=== PATIENT | female | born 1950 | race Caucasian/White ===

== ENCOUNTER 2020-08-09 16:29 | Outpatient (REF) | payer MEDICARE, SELFPAY ==
[2020-08-09 14:09] LABS: Abs Immature Grans 0.01 10^3/uL (0.0-0.06); Absolute Basophil Count 0.03 10^3/uL (0.0-0.2); Absolute Eosinophil Count 0.21 10^3/uL (0.0-0.7); Absolute Monocyte Count 0.37 10^3/uL (0.1-0.8); Absolute Neutrophil Count 2.53 10^3/uL (1.2-6.7); Basophils % 0.7; Eosinophils % 4.9; HCT 38.3 % (36.0-46.0); HGB 11.8 g/dL (11.2-15.7); Immature Grans % 0.2; Lymphocytes % 25.9; MCH 29.1 pg (27.0-33.0); MCHC 30.8 % (32.0-36.0); MCV 94.6 fL (80-95); MPV 11.5 fL (8.0-11.0); Monocytes % 8.7; Neutrophils % 59.6; Nucleated RBC 0 %; Platelet Count 219 10^3/uL (130-400); RBC 4.05 10^6/uL (3.93-5.22); RDW 13.2 % (11.7-14.6); RDW-SD 46.5 fL; WBC 4.25 10^3/uL (4.4-10.8)
[2020-08-09 14:16] LABS: ALT 31 U/L (14-59); AST 44 U/L (15-37); Albumin 4.2 g/dL (3.4-5.0); Alkaline Phosphatase 108 U/L (46-116); Anion Gap 10.3 mmol/L (3-11); BUN 21 mg/dL (7-18); Bilirubin, Total 0.2 mg/dL (0.2-1.0); CO2 26.7 mmol/L (21.0-32.0); Calcium 9.4 mg/dL (8.5-10.1); Calculated LDL 61 mg/dL (<100); Chloride 109 mmol/L (98-107); Cholesterol 152 mg/dL (<200); Estimated GFR 54.66 (mL/min/1.73m2); Glucose 78 mg/dL (74-106); HDL Cholesterol 81 mg/dL (40-60); Potassium 3.9 mmol/L (3.5-5.1); Sodium 146 mmol/L (136-145); Total Protein 6.9 g/dL (6.4-8.2); Triglyceride 50 mg/dL (<150)
== END 2020-08-09 16:30 | disposition home or self-care (01) ==
LOC: NCHCN 16:29
PROVIDERS: PCP Internal Medicine; Visit Provider Internal Medicine
DX: E78.5 Hyperlipidemia, unspecified (principal); Z87.19 Personal history of other diseases of the digestive system
CPT/HCPCS: 80053; 80061; 85025

== ENCOUNTER 2021-08-13 08:35 | Outpatient (REF) | payer MEDICARE, SELFPAY ==
[2021-08-13 16:02] LABS: ALT 29 U/L (14-59); AST 32 U/L (15-37); Albumin 3.8 g/dL (3.4-5.0); Alkaline Phosphatase 127 U/L (46-116); Anion Gap 6.9 mmol/L (3-11); BUN 17 mg/dL (7-18); Bilirubin, Total 0.3 mg/dL (0.2-1.0); CO2 27.1 mmol/L (21.0-32.0); CREATININE 0.7 mg/dL (0.55-1.02); Calcium 8.9 mg/dL (8.5-10.1); Chloride 109 mmol/L (98-107); Glucose 70 mg/dL (74-106); Potassium 3.4 mmol/L (3.5-5.1); Sodium 143 mmol/L (136-145); Total Protein 6.6 g/dL (6.4-8.2)
== END 2021-08-13 08:36 | disposition home or self-care (01) ==
LOC: NCHCN 08:35
PROVIDERS: PCP Internal Medicine; Visit Provider Internal Medicine
DX: R94.5 Abnormal results of liver function studies (principal); Z00.00 Encounter for general adult medical examination without abnormal findings
CPT/HCPCS: 80053

== ENCOUNTER 2022-11-29 18:34 | Outpatient (REF) | payer MEDICARE, MEDICAID, SELFPAY ==
[2022-11-29 21:41] LABS: ALT 104 U/L (14-59); AST 113 U/L (15-37); Albumin 4.3 g/dL (3.4-5.0); Alkaline Phosphatase 167 U/L (46-116); BUN 22 mg/dL (7-18); Bilirubin, Total 0.5 mg/dL (0.2-1.0); CREATININE 1.1 mg/dL (0.55-1.02); Calcium 9.2 mg/dL (8.5-10.1); Calculated LDL 75 mg/dL (<100); Chloride 103 mmol/L (98-107); Cholesterol 146 mg/dL (<200); Estimated GFR 53.06 (mL/min/1.73m2); Glucose 87 mg/dL (74-106); HDL Cholesterol 55 mg/dL (40-60); Potassium 4.4 mmol/L (3.5-5.1); Sodium 139 mmol/L (136-145); Total Protein 7.7 g/dL (6.4-8.2); Triglyceride 83 mg/dL (<150)
[2022-11-29 22:02] LABS: Vitamin D 25 Total 57.5 ng/mL (30-100)
== END 2022-11-29 18:35 | disposition home or self-care (01) ==
LOC: NCHCN 18:34
PROVIDERS: PCP Internal Medicine; Visit Provider Registered Nurse
DX: E78.5 Hyperlipidemia, unspecified (principal); E55.9 Vitamin D deficiency, unspecified; R94.5 Abnormal results of liver function studies; K76.89 Other specified diseases of liver
CPT/HCPCS: 80053; 80061; 82306

== ENCOUNTER 2023-05-16 12:19 | Outpatient (REF) | payer MEDICARE, SELFPAY ==
--- OUTSIDE RECORDS SUMMARY | 2023-05-16 12:21 | XMS_ITS | CCD ---
Author Name Unknown Address [address] [place] [address] [id number] Organization Unknown Address [address] [place], [place] [id number] Care Team Providers Care Plumbing And Heating Mechanic Name Role Phone KIMMIE PEREZ Attending Physician [phone] Vital Signs Unknown or Not Available. Allergies Allergy Code Allergy Type Reaction Status TOPAMAX 883617 Drug allergy UNKNOWN IN PCP PAPERWOR K Active ARICEPT 432046 Drug allergy Active TEGRETOL 327006 Drug allergy UNKNOWN PCP PAPERWORK A ctive CT DYE {Clinical monitoring unavailable} 0 Drug allergy Active Procedures Unknown or Not Available. History of Immunizations Unknown or Not Available. Problems Unknown or Not Available. Results Unknown or Not Available. Active Medications Unknown or Not Available. Medications Administered During Visit Unknown or Not Available. Encounters Encounter Diagnosis Diagnosis Code Start Date Unspecified fracture of shaf t of right ulna, subsequent encounter for closed fracture with routine healing [id number] Social History Unknown or Not Available. Patient Decision Aids Unknown or Not Available. Discharge Instructions You were admitted to [facility] on 07/18/2022 10:51 with a principal diagnosis of Unsp fx shaft of right ulna, subs for clos fx w routn heal You were discharged from [facility] on 07/18/2022 14:22 Should you have any questions prior to discharge, please contact a member of your healthcare team. If you have left the hospital and have any questions, please contact your primary care physician. Chief Complaint and Reason For Visit Unknown or Not Available. Function Status Unknown or Not Available. Plan of Care Unknown or Not Available. Referral/Transition of Care Unknown or Not Available.
--- OUTSIDE RECORDS SUMMARY | 2023-05-16 12:21 | XMS_ITS | CCD ---
Author Name Unknown Address [address] [place] [address] [id number] Organization Unknown Address [address] [place] [address] [id number] Care Team Providers Care Dinner Cook Name Role Phone KIMMIE PEREZ Attending Physician [phone] KIMMIE PEREZ Rounding (Secondary) Physic rayne [phone] Vital Signs Vital Sign Value Unit Date/Time Recent/Initial ? BP Systolic 126 mmHg 07/11/2022 20:18 Initial VS BP Diastolic 78 mmHg 07/11/2022 20:18 Initia l VS Respiratory Rate 15 bpm 07/11/2022 20:18 In itial VS Heart Rate 88 bpm 07/11/2022 20:18 Initial VS O2 % BldC Oximetry 95 % 07/11/2022 20:18 Initial VS Body Temperature 36.3 degrees 07/11/2022 20:18 In itial VS BMI (Body Mass Index) 32.87 kg/m^2 07/11/2022 20: 20 Initial VS Weight Measured 179.7 lbs 07/11/2022 20:20 Ini tial VS Height 62 in 07/11/2022 20:20 Initial VS BSA (Body Surface Area) 1.89 m^2 07/11/2022 2 0:20 Initial VS BP Systolic 142 mmHg 07/12/2022 11:29 Most Re cent VS BP Diastolic 67 mmHg 07/12/2022 11:29 Most R ecent VS Respiratory Rate 18 bpm 07/12/2022 11:[address] Recent VS Heart Rate 90 bpm 07/12/2022 11:29 Most Rec ent VS O2 % BldC Oximetry 18 % 07/12/2022 11:29 Most Recent VS Body Temperature 36.8 degrees 07/12/2022 11:[address] Recent VS Allergies Allergy Code Allergy Type Reaction Status TOPAMAX 571192 Drug allergy UNKNOWN IN PCP PAPERWOR K Active ARICEPT 663798 Drug allergy Active TEGRETOL 20290530 Drug allergy UNKNOWN PCP PAPERWORK A ctive CT DYE {Clinical monitoring unavailable} 0 Drug allergy Active Procedures Procedure Code Procedure Type Date Open Treatment, Ulnar FX,Pro ximal End (Olecranon Process), w/wo Int Fixation 85954 CPT 07/11/2022 Open Treatment, Patellar FX, w/Int Fixation/Patellectomy & Soft Tissue Repair 49987 CPT 07/11/2022 Injection Anesthetic Agent a nd/or Steroid; Femoral Nerve Including Imaging Guidance When Performed 53321 CPT 07/11/2022 Anesthesia, Open/Surg Arthroscopic Proc, Elbow; NOS 01 740 CPT 07/11/2022 History of Immunizations Unknown or Not Available. Problems Unknown or Not Available. Results Unknown or Not Available. Active Medications Medications Administered During Visit Medication Dose Units Frequency Route Date/Time of Last Dose CeFAZolin IVPB FROZEN PREMIX: 2GM/100ML 2 GM X1 07/11/2022 14:45 ACETAMINOPHEN TABLET: 325MG 975 MG X1 PO 07/11/2022 13:45 CELECOXIB CAPSULE: 100MG 200 MG X1 PO 07/11/2022 13:45 LACTATED RINGERS 1000ML 1 EA X1 07/11/2022 14:26 HYDROmorphone INJ SYRINGE: 0.5MG/0.5ML 0.25 MG PRN IN PACU Q5MIN IVP 07/11/2022 19:49 ACETAMINOPHEN INJ IVPB: 1000MG/100ML 1000 MG PRN IN PACU X1 07/11/2022 19 :04 ACETAMINOPHEN INJ IVPB: 1000MG/100ML 1000 MG Q6H 07/12/2022 09:3 3 ASCORBIC ACID TABLET: 500MG 500 MG DAILY PO 07/12/2022 09:33 CeFAZolin IVPB FROZEN PREMIX: 2GM/100ML 2 GM Q8H 07/12/2022 06:05 ASPIRIN TABLET E.C.: 81MG 81 MG BID PO 07/12/2022 09:33 DEXTROSE 5% AND NACL 0.45% 1000ML 1000 ML CONT 07/11/2022 21:4 0 Encounters Encounter Diagnosis Diagnosis Code Start Date Other fracture of left guzman la, initial encounter for closed fracture [id number] 07/11/2022 Social History Smoking Status Code Start Date End Date Never smoker [id number] Patient Decision Aids Patient Decision Aid Non Weight Bearing Activity Patient Portal Access Discharge Instructions You were admitted to [facility] on 07/11/2022 12:22 with a principal diagnosis of Other fracture of left patella, initial encounter for closed fracture You had the following procedures done:Open Treatment, Ulnar FX,Proximal End (Olecranon Process), w/wo Int FixationOpen Treatment, Patellar FX,w/Int Fixation/Patellectomy & Soft Tissue RepairInjection Anesthetic Agent and/or Steroid; Femoral Nerve Including Imaging Guidance When PerformedAnesthesia, Open/Surg Arthroscopic Proc, Elbow; NOS You were discharged from [facility] on 07/12/2022 12:50 Should you have any questions prior to discharge, please contact a member of your healthcare team. If you have left the hospital and have any questions, please contact your primary care physician. Chief Complaint and Reason For Visit Chief Complaint Date of Onset RT OLECRANON FRACTURE LT PATELLA FRACTUR E Function Status Unknown or Not Available. Plan of Care Unknown or Not Available. Referral/Transition of Care Unknown or Not Available.
--- OUTSIDE RECORDS SUMMARY | 2023-05-16 12:21 | XMS_ITS | CCD ---
Author Name Unknown Address [address] [place] [address] [id number] Organization Unknown Address [address] [place], [place] [phone] Care Team Providers Care Research Geologist Name Role Phone MARJAN DAS Attending Physician [phone] MARJAN DAS Rounding (Secondary) Physic rayne [phone] Vital Signs Unknown or Not Available. Allergies Allergy Code Allergy Type Reaction Status TOPAMAX 835464 Drug allergy UNKNOWN IN PCP PAPERWOR K Active ARICEPT 744320 Drug allergy Active TEGRETOL 047024 Drug allergy UNKNOWN PCP PAPERWORK A ctive CT DYE {Clinical monitoring unavailable} 0 Drug allergy Active Procedures Unknown or Not Available. History of Immunizations Unknown or Not Available. Problems Unknown or Not Available. Results Unknown or Not Available. Active Medications Unknown or Not Available. Medications Administered During Visit Unknown or Not Available. Encounters Encounter Diagnosis Diagnosis Code Start Date Closed fracture of patella [id number] 08/06 Social History Smoking Status Code Start Date End Date Never smoker [id number] Patient Decision Aids Unknown or Not Available. Discharge Instructions You were admitted to [facility] on 08/06/2022 00:00 with a principal diagnosis of Other fracture of left patella, subsequent encounter for closed fracture with routine healing You were discharged from [facility] on 08/06/2022 00:00 Should you have any questions prior to [...]
--- OUTSIDE RECORDS SUMMARY | 2023-05-16 12:21 | XMS_ITS | CCD ---
Author Name Unknown Address [address] [place] [address] [id number] Organization Unknown Address [address] [place] [address] [phone] Care Team Providers Care Regional Account Director Name Role Phone REGINALDO ELLIS Attending Physician [phone] REGINALDO ELLIS Rounding (Secondary) Physician [phone] Vital Signs Unknown or Not Available. Allergies Allergy Code Allergy Type Reaction Status TOPAMAX 091220 Drug allergy UNKNOWN IN PCP PAPERWOR K Active ARICEPT 828269 Drug allergy Active TEGRETOL 059144 Drug allergy UNKNOWN PCP PAPERWORK A ctive CT DYE {Clinical monitoring unavailable} 0 Drug allergy Active Procedures Unknown or Not Available. History of Immunizations Unknown or Not Available. Problems Unknown or Not Available. Results Unknown or Not Available. Active Medications Unknown or Not Available. Medications Administered During Visit Unknown or Not Available. Encounters Encounter Diagnosis Diagnosis Code Start Date Closed fracture of patella [id number] 08/13 Social History Smoking Status Code Start Date End Date Never smoker [id number] Patient Decision Aids Unknown or Not Available. Discharge Instructions You were admitted to [facility] on 08/13/2022 00:00 with a principal diagnosis of Other fracture of left patella, subsequent encounter for closed fracture with routine healing You were discharged from [facility] on 08/13/2022 00:00 Should you have any questions prior [...]
--- OUTSIDE RECORDS SUMMARY | 2023-05-16 12:21 | XMS_ITS | CCD ---
Author Name Unknown Address [address] [place] [address] [id number] Organization Unknown Address [address] [place] [address] [id number] Care Team Providers Care Complex Manager Name Role Phone CROW ANDRADE Attending Physician [phone] CROW ANDRADE Rounding (Secondary) Physici an [phone] Vital Signs Unknown or Not Available. Allergies Allergy Code Allergy Type Reaction Status TOPAMAX 792508 Drug allergy UNKNOWN IN PCP PAPERWOR K Active ARICEPT 729396 Drug allergy Active TEGRETOL 892134 Drug allergy UNKNOWN PCP PAPERWORK A ctive CT DYE {Clinical monitoring unavailable} 0 Drug allergy Active Procedures Unknown or Not Available. History of Immunizations Unknown or Not Available. Problems Unknown or Not Available. Results Unknown or Not Available. Active Medications Unknown or Not Available. Medications Administered During Visit Unknown or Not Available. Encounters Encounter Diagnosis Diagnosis Code Start Date Closed fracture of patella [id number] 07/23 Social History Smoking Status Code Start Date End Date Never smoker [id number] Patient Decision Aids Unknown or Not Available. Discharge Instructions You were admitted to [facility] on 07/23/2022 00:00 with a principal diagnosis of Other fracture of left patella, subsequent encounter for closed fracture with routine healing You were discharged from [facility] on 07/23/2022 00:00 Should you have any questions prior [...]
--- OUTSIDE RECORDS SUMMARY | 2023-05-16 12:21 | XMS_ITS | CCD ---
Author Name Unknown Address [address] [place] [address] [id number] Organization Unknown Address [address] [place], [place] [phone] Care Team Providers Care Motor Vehicle Assembly Supervisor Name Role Phone KIMMIE PEREZ Attending Physician [phone] Vital Signs Unknown or Not Available. Allergies Allergy Code Allergy Type Reaction Status TOPAMAX 917411 Drug allergy UNKNOWN IN PCP PAPERWOR K Active ARICEPT 450978 Drug allergy Active TEGRETOL 505819 Drug allergy UNKNOWN PCP PAPERWORK A ctive CT DYE {Clinical monitoring unavailable} 0 Drug allergy Active Procedures Unknown or Not Available. History of Immunizations Unknown or Not Available. Problems Unknown or Not Available. Results Unknown or Not Available. Active Medications Unknown or Not Available. Medications Administered During Visit Unknown or Not Available. Encounters Encounter Diagnosis Diagnosis Code Start Date Unspecified fracture of left patella, subsequent encounter for closed fracture with routine healing [id number] 07/23/2022 Social History Smoking Status Code Start Date End Date Never smoker [id number] Patient Decision Aids Unknown or Not Available. Discharge Instructions You were admitted to [facility] on 07/23/2022 10:27 with a principal diagnosis of Unspecified fracture of left patella, subsequent encounter for closed fracture with routine healing You were discharged from [facility] on 07/30/2022 14:02 Should you have any questions prior to [...]
--- OUTSIDE RECORDS SUMMARY | 2023-05-16 12:21 | XMS_ITS | CCD ---
Author Name Unknown Address [address] [place] [address] [id number] Organization Unknown Address [address] [place], [place] [phone] Care Team Providers Care Quality Assurance Lab Technician Name Role Phone KIMMIE PEREZ Attending Physician [phone] KIMMIE PEREZ Rounding (Secondary) Physic rayne [phone] Vital Signs Unknown or Not Available. Allergies Allergy Code Allergy Type Reaction Status TOPAMAX 737869 Drug allergy UNKNOWN IN PCP PAPERWOR K Active ARICEPT 623881 Drug allergy Active TEGRETOL 230246 Drug allergy UNKNOWN PCP PAPERWORK A ctive CT DYE {Clinical monitoring unavailable} 0 Drug allergy Active Procedures Unknown or Not Available. History of Immunizations Unknown or Not Available. Problems Unknown or Not Available. Results Unknown or Not Available. Active Medications Unknown or Not Available. Medications Administered During Visit Unknown or Not Available. Encounters Encounter Diagnosis Diagnosis Code Start Date Closed fracture of patella [id number] 08/26 Social History Smoking Status Code Start Date End Date Never smoker [id number] Patient Decision Aids Unknown or Not Available. Discharge Instructions You were admitted to [facility] on 08/26/2022 00:00 with a principal diagnosis of Other fracture of left patella, subsequent encounter for closed fracture with routine healing You were discharged from [facility] on 08/26/2022 00:00 Should you have any questions prior [...]
--- OUTSIDE RECORDS SUMMARY | 2023-05-16 12:22 | XMS_ITS | CCD ---
Author Name Unknown Address [address] [place] [address] [id number] Organization Unknown Address [address] [place], [place] [phone] Care Team Providers Care Conference Assistant Name Role Phone ANA CHONG Attending Physician [phone] CHELLE GUILLERMO Er Physician [phone] JENNIE Johnson Registered Nurse [phone] Vital Signs Vital Sign Value Unit Date/Time Recent/Initial ? BMI (Body Mass Index) 27.44 kg/m^2 07/06/2022 12: 59 Initial VS Weight Measured 150 lbs 07/06/2022 12:59 Ini tial VS Height 62 in 07/06/2022 12:59 Initial VS BSA (Body Surface Area) 1.73 m^2 07/06/2022 1 2:59 Initial VS BP Systolic 130 mmHg 07/06/2022 12:59 Initial VS BP Diastolic 65 mmHg 07/06/2022 12:59 Initia l VS Respiratory Rate 16 bpm 07/06/2022 12:59 In itial VS Heart Rate 72 bpm 07/06/2022 12:59 Initial VS O2 % BldC Oximetry 97 % 07/06/2022 12:59 Initial VS Body Temperature 35.7 degrees 07/06/2022 12:59 In itial VS BP Systolic 123 mmHg 07/06/2022 15:35 Most Re cent VS BP Diastolic 73 mmHg 07/06/2022 15:35 Most R ecent VS Respiratory Rate 16 bpm 07/06/2022 15:[address] Recent VS Heart Rate 86 bpm 07/06/2022 15:35 Most Rec ent VS O2 % BldC Oximetry 93 % 07/06/2022 15:35 Most Recent VS Allergies Allergy Code Allergy Type Reaction Status CT DYE {Clinical monitoring unavailable} 0 Drug a llergy Active Procedures Unknown or Not Available. History of Immunizations Unknown or Not Available. Problems Unknown or Not Available. Results Unknown or Not Available. Active Medications Unknown or Not Available. Medications Administered During Visit Unknown or Not Available. Encounters Encounter Diagnosis Diagnosis Code Start Date Unspecified fracture of uppe r end of right ulna, initial encounter for closed fracture [id number] 07/06/2022 Social History Unknown or Not Available. Patient Decision Aids Unknown or Not Available. Discharge Instructions You were admitted to [facility] on 07/06/2022 12:37 with a principal diagnosis of Unspecified fracture of upper end of right ulna, initial encounter for closed fracture You were discharged from [facility] on 07/06/2022 16:05 Should you have any questions prior to discharge, please contact a member of your healthcare team. If you have left the hospital and have any questions, please contact your primary care physician. Chief Complaint and Reason For Visit Chief Complaint Date of Onset FALL Function Status Unknown or Not Available. Plan of Care Unknown or Not Available. Referral/Transition of Care Unknown or Not Available.
--- OUTSIDE RECORDS SUMMARY | 2023-05-16 12:22 | XMS_ITS | CCD ---
Author Name Unknown Address [address] [place] [address] [id number] Organization Unknown Address [address] [place] [address] [phone] Care Team Providers Care Desktop Support Technician Name Role Phone KIMMIE PEREZ Attending Physician [phone] Vital Signs Unknown or Not Available. Allergies [...] guzman la, initial encounter for closed fracture [id number] 07/10/2022 Social History Unknown or Not Available. Patient Decision Aids Unknown or Not Available. Discharge Instructions You were admitted to [facility] on 07/10/2022 13:14 with a principal diagnosis of Other fracture of left patella, initial encounter for closed fracture You were discharged from [facility] on 07/10/2022 13:14 Should you have any questions prior to discharge, please contact a member of your healthcare team. If you have left the hospital and have any questions, please contact your primary care physician. Chief Complaint and Reason For Visit Chief Complaint Date of Onset LT KNEE INJURY Function Status Unknown or Not Available. Plan of Care Unknown or Not Available. Referral/Transition of Care Unknown or Not Available.
[2023-05-16 21:00] LABS: Abs Immature Grans 0.01 10^3/uL (0.0-0.06); Absolute Basophil Count 0.03 10^3/uL (0.0-0.2); Absolute Lymphocyte Count 0.99 10^3/uL (1.2-3.4); Basophils % 0.8; Eosinophils % 2.6; HCT 40.8 % (36.0-46.0); HGB 13.1 g/dL (11.2-15.7); Immature Grans % 0.3; Lymphocytes % 25.8; MCH 30.3 pg (27.0-33.0); MCHC 32.1 % (32.0-36.0); MCV 94 fL (80-95); MPV 10.9 fL (8.0-11.0); Monocytes % 7.8; Neutrophils % 62.7; Platelet Count 205 10^3/uL (130-400); RBC 4.33 10^6/uL (3.93-5.22); RDW 12.1 % (11.7-14.6); RDW-SD 42.2 fL; WBC 3.83 10^3/uL (4.4-10.8)
[2023-05-16 21:44] LABS: ALT 80 U/L (14-59); AST 99 U/L (15-37); Alkaline Phosphatase 121 U/L (46-116); Anion Gap 9.2 mmol/L (3-11); BUN 17 mg/dL (7-18); Bilirubin, Total 0.3 mg/dL (0.2-1.0); CO2 25.8 mmol/L (21.0-32.0); CREATININE 0.9 mg/dL (0.55-1.02); Calcium 9.6 mg/dL (8.5-10.1); Chloride 106 mmol/L (98-107); Estimated GFR 67.08 (mL/min/1.73m2); Glucose 180 mg/dL (74-106); Potassium 3.8 mmol/L (3.5-5.1); Sodium 141 mmol/L (136-145); Total Protein 7.5 g/dL (6.4-8.2); Vitamin B12 970 pg/mL (193-986)
[2023-05-16 21:52] LABS: Folate > 20.0 ng/mL (8.6-20.0)
== END 2023-05-16 12:20 | disposition home or self-care (01) ==
LOC: NCHCN 12:19
PROVIDERS: PCP Internal Medicine; Visit Provider Family Medicine
DX: R41.3 Other amnesia (principal); R74.01 Elevation of levels of liver transaminase levels
CPT/HCPCS: 80053; 82607; 82746; 85025

== ENCOUNTER 2023-09-09 18:36 | Outpatient (REF) | payer MEDICARE, SELFPAY ==
[2023-09-09 21:08] LABS: Abs Immature Grans 0.02 10^3/uL (0.0-0.06); Absolute Basophil Count 0.03 10^3/uL (0.0-0.2); Absolute Eosinophil Count 0.11 10^3/uL (0.0-0.7); Absolute Lymphocyte Count 1.53 10^3/uL (1.2-3.4); Absolute Monocyte Count 0.41 10^3/uL (0.1-0.8); Basophils % 0.7 %; Eosinophils % 2.4 %; HCT 36.6 % (36.0-46.0); HGB 11.7 g/dL (11.2-15.7); Immature Grans % 0.4 %; Lymphocytes % 33.3 %; MCH 30.7 pg (27.0-33.0); MCV 96 fL (80-95); MPV 11.5 fL (8.0-11.0); Monocytes % 8.9 %; Neutrophils % 54.3 %; Platelet Count 193 10^3/uL (130-400); RBC 3.81 10^6/uL (3.93-5.22); RDW 13.5 % (11.7-14.6); RDW-SD 47.2 fL
[2023-09-09 21:33] LABS: ALT 30 U/L (14-59); AST 26 U/L (15-37); Albumin 3.6 g/dL (3.4-5.0); Alkaline Phosphatase 93 U/L (46-116); Anion Gap 8.7 mmol/L (3-11); BUN 15 mg/dL (7-18); Bilirubin, Total 0.5 mg/dL (0.2-1.0); CO2 28.3 mmol/L (21.0-32.0); CREATININE 1.2 mg/dL (0.55-1.02); Calcium 9.4 mg/dL (8.5-10.1); Chloride 108 mmol/L (98-107); Glucose 105 mg/dL (74-106); Potassium 3.5 mmol/L (3.5-5.1); Sodium 145 mmol/L (136-145); Total Protein 6.6 g/dL (6.4-8.2)
[2023-09-10 15:51] LABS: Iron 91 ug/dL (50-170); Total Iron Binding Capacity 252 ug/dL (250-450); Transferrin Sat 36 % (15-50)
[2023-09-10 16:06] LABS: Ferritin 247 ng/mL (8-252)
[2023-09-10 19:36] LABS: Hepatitis A Antibody IgM Negative (Negative); Hepatitis B Core Antibody Negative (Negative); Hepatitis B surface Ag Negative (Negative); Hepatitis C Ab w Rflx HCV PCR Negative (Negative)
== END 2023-09-09 18:37 | disposition home or self-care (01) ==
LOC: NCHCN 18:36
PROVIDERS: PCP Internal Medicine; Visit Provider Family Medicine
DX: R53.83 Other fatigue (principal); R74.01 Elevation of levels of liver transaminase levels
CPT/HCPCS: 80053; 86704; 86709; 86803; 87340; 82728; 83540; 83550; 85025

== ENCOUNTER 2024-10-11 18:08 | Outpatient (REF) | payer MEDICARE, SELFPAY ==
[2024-10-11 21:05] LABS: Abs Immature Grans 0.01 10^3/uL (0.0-0.06); Absolute Basophil Count 0.03 10^3/uL (0.0-0.2); Absolute Eosinophil Count 0.02 10^3/uL (0.0-0.7); Absolute Lymphocyte Count 1.24 10^3/uL (1.2-3.4); Absolute Monocyte Count 0.26 10^3/uL (0.1-0.8); Absolute Neutrophil Count 4.24 10^3/uL (1.2-6.7); Basophils % 0.5 %; Eosinophils % 0.3 %; HCT 40.1 % (36.0-46.0); HGB 13.2 g/dL (11.2-15.7); Immature Grans % 0.2 %; Lymphocytes % 21.4 %; MCH 28.9 pg (27.0-33.0); MCHC 32.9 % (32.0-36.0); MCV 88 fL (80-95); MPV 10.8 fL (8.0-11.0); Monocytes % 4.5 %; Neutrophils % 73.1 %; Platelet Count 220 10^3/uL (130-400); RBC 4.56 10^6/uL (3.93-5.22); RDW 11.8 % (11.7-14.6); RDW-SD 37.9 fL
[2024-10-11 21:21] LABS: TSH (W/Ref FT4) 1.29 uIU/mL (0.36-3.74)
[2024-10-12 03:40] LABS: ALT 18 U/L (14-59); AST 20 U/L (15-37); Albumin 4.2 g/dL (3.4-5.0); Alkaline Phosphatase 111 U/L (46-116); Anion Gap 9.7 mmol/L (3-11); BUN 17 mg/dL (7-18); Bilirubin, Total 0.8 mg/dL (0.2-1.0); CO2 28.3 mmol/L (21.0-32.0); CREATININE 1.1 mg/dL (0.55-1.02); Calcium 9.7 mg/dL (8.5-10.1); Chloride 103 mmol/L (98-107); Glucose 126 mg/dL (74-106); Potassium 3.4 mmol/L (3.5-5.1); Sodium 141 mmol/L (136-145); Total Protein 7.3 g/dL (6.4-8.2)
== END 2024-10-11 18:09 | disposition home or self-care (01) ==
LOC: NCHCN 18:08
PROVIDERS: PCP Internal Medicine; Visit Provider Family Medicine
DX: R63.4 Abnormal weight loss (principal)
CPT/HCPCS: 80053; 84443; 85025

== ENCOUNTER 2025-01-17 17:19 | Outpatient (REF) | payer MEDICARE, SELFPAY ==
[2025-01-17 19:41] LABS: HCT 39.1 % (36.0-46.0); HGB 12.5 g/dL (11.2-15.7); MCH 29.4 pg (27.0-33.0); MCHC 32.0 % (32.0-36.0); MCV 92 fL (80-95); MPV 11.1 fL (8.0-11.0); Platelet Count 211 10^3/uL (130-400); RBC 4.25 10^6/uL (3.93-5.22); RDW 12.2 % (11.7-14.6); RDW-SD 41.1 fL; WBC 3.94 10^3/uL (4.4-10.8)
[2025-01-17 19:57] LABS: Iron 57 ug/dL (50-170); Total Iron Binding Capacity 324 ug/dL (250-450); Transferrin Sat 18 % (15-50)
[2025-01-17 20:23] LABS: Anion Gap 9.0 mmol/L (3-11); BUN 15 mg/dL (7-18); CO2 29.0 mmol/L (21.0-32.0); Calcium 9.6 mg/dL (8.5-10.1); Chloride 105 mmol/L (98-107); Estimated GFR 66.67 (mL/min/1.73m2); Ferritin 90 ng/mL (8-252); Folate 12.0 ng/mL (8.6-20.0); Glucose 106 mg/dL (74-106); Potassium 4.1 mmol/L (3.5-5.1); Sodium 143 mmol/L (136-145); Vitamin B12 304 pg/mL (193-986)
== END 2025-01-17 17:20 | disposition home or self-care (01) ==
LOC: NCHCN 17:19
PROVIDERS: PCP Internal Medicine; Visit Provider Family Medicine
DX: D64.9 Anemia, unspecified (principal); E87.6 Hypokalemia
CPT/HCPCS: 80048; 85027; 82607; 82728; 82746; 83540; 83550